=== PATIENT | female | born 1950 | race Caucasian/White ===

== ENCOUNTER 2025-02-17 08:00 | Day surgery (SDC) | payer OTHER ==
[2025-02-17] MEDS ORDERED: HEPARIN 5000 UNIT/ML 1 ML VIAL ONE (08:26)
[2025-02-17] MEDS ORDERED: LIDOCAINE 1% 20 ML MDV ONE (08:26)
[2025-02-17] MEDS ORDERED: HEPA 1000U/500MLS 2,000 UNIT/1,000 ML BAG IV ONE (08:26)
[2025-02-17] MEDS ORDERED: HEPARIN 10,000 UNIT/10 ML VIAL IV ONE (08:26)
[2025-02-17] MEDS ORDERED: NA CHLORIDE 0.9% 500 ML ONE (08:28)
[2025-02-17] MEDS ORDERED: MIDAZOLAM HCL 2 MG/2 ML INJ ONE (08:29)
[2025-02-17] MEDS ORDERED: FENTANYL CITR 100 MCG/2 ML ONE (08:29)
[2025-02-17] MEDS ORDERED: ASPIRIN 325 MG TAB ONE (08:57)
[2025-02-17] MEDS ORDERED: ASPIRIN 81 MG CHEWABLE TABLET ONE (08:58)
[2025-02-17 12:37] VITALS: TEMP 97.8
[2025-02-17 13:52] VITALS: BP 118/68; O2SAT 99
--- NOTE | 2025-02-22 01:01 | OP ---
Date of Procedure: 02/17/2025 Surgeon: Jeffrey Arceo Procedure Performed: Selective coronary angiogram. Indication For Procedure: Unstable angina. Complications: None. Estimated Blood Loss: Less than 50 mL. Access: Right radial, closed by TR band. Sedation Time: 20 minutes with 1 of Versed and 25 of fentanyl. Description Of Procedure: After risks, benefits, and alternatives were explained to the patient, pat ient agreed to proceed with procedure and signed informed consent. The patient was brought back to [facility], prepped and draped in usual sterile fashion. Time-out was performed. Sedation was admi nistered. Next, the right radial access was obtained using ultrasound-guided micropuncture technique . [place] 4.0 catheter was advanced over a J-wire to the aortic root. Selective angiogram was done us ing the same catheter. At the end of procedure, catheter was removed over a J-wire. Sheath was alyssia jim. TR band was applied. Hemostasis achieved. The patient was moved back to recovery in stable co ndition. Findings: 1. Left main normal. 2. LAD, proximal mild luminal irregularities with mid 30% to 40% disease and mild luminal irregularit ies. 3. Left circ, mild luminal irregularities. 4. RCA normal. Assessment And Plan: Mild mid left anterior descending disease. Plan: To continue medical management. BHARAT/NORMA Voice ID: [id number] Report ID: [id number]
== END 2025-02-17 13:45 | disposition home or self-care (01) ==
LOC: CCL 08:00
PROVIDERS: ATTEND Internal Medicine Interventional Cardiology
DX: I25.110 Atherosclerotic heart disease of native coronary artery with unstable angina pectoris (principal); I34.0 Nonrheumatic mitral (valve) insufficiency; Z87.891 Personal history of nicotine dependence; Z79.899 Other long term (current) drug therapy; Z88.0 Allergy status to penicillin
CPT/HCPCS: 93454; 76937; C1893; Q9966; J2003; J2250; J3010; J1644; J7040; 99152; 99153